=== PATIENT | female | born 1990 | race Caucasian/White ===

== ENCOUNTER 2017-10-03 23:47 | Emergency (ER) | payer BC ==
--- NOTE | 2017-10-03 23:58 | EDM.PDOC ---
ED HPI GENERAL MEDICAL PROBLEM - General Chief Complaint: ENT Problem Stated Complaint: POSS EAR INFECTION Time Seen by Provider: 10/03/17 23:58 Source of Information: Reports: Patient History Limitations: Reports: No Limitations - History of Present Illness INITIAL COMMENTS - FREE TEXT/NARRATIVE: 27-year-old female presents to the ED with acute onset of severe right earache starting about 1800 hrs. last evening. Patient states she felt more stuffed up yesterday and felt she was coming down with a cold. She appreciates that there is some pain on touching the tragus of her ear. As use Q-tips to clean her ears. However she has a history of multiple ear infections requiring multiple myringotomy tube insertions she believes 5 times since childhood. She is therefore very prone to ear infection and sinus infections. She denies any bleeding or discharge from the ear. Pain is constant and is still throbbing with intermittent sharp and stabbing pain. Of note she is approximate 16 weeks . Denies any nausea or vomiting. thus far has been uncomplicated. Onset: Today Onset Date: 10/03/17 Onset Time: 18:00 Duration: Hour(s): Location: Reports: Other (Right ear pain) Quality: Reports: Ache, Pressure, Stabbing, Throbbing Severity: Severe (Rates the pain as 8 out of 10.) Improves with: Reports: None Worsens with: Reports: Other Context: Reports: Other (Mild upper respiratory tract infection). Denies: Activity (Lying down seemed to make it worse.), Exercise, Lifting, Sick Contact , Trauma Associated Symptoms: Reports: No Other Symptoms Treatments MEDICAL COLLECTOR: Reports: Other (see below) Right Ear Pain Score (Numeric/FACES): 6 - Related Data Allergies Allergy/AdvReac Type Severity Reaction Status Date / Time No Known Allergies Allergy Verified 10/03/17 23:55 Home Meds: Home Meds Vit #108/Iron/FA [ One Tablet] 1 tab PO DAILY 10/03/17 [History ] Amoxicillin/Potassium Clav [Augmentin 500-125 Tablet] 1 each PO BID #20 tablet 10/04/17 [Rx] oxyCODONE HCl/Acetaminophen [Percocet 5-325 mg Tablet] 1 - 2 each PO Q4H PRN # 20 tablet 10/04/17 [Rx] Past Medical History [employer] History: Reports: : 3 Para: 2 LMP (Approximate): > 3 Months - Past Surgical History HEENT Surgical History: Reports: Myringotomy w Tube(s) (She estimates at least 5 times since childhood.) Social & Family History - Tobacco Use Smoking Status *Q: Never Smoker Second Hand Smoke Exposure: No - Caffeine Use Caffeine Use: Reports: Coffee - Recreational Drug Use Recreational Drug Use: No - Living Situation & Occupation Living situation: Reports: ED ROS ENT - Review of Systems Review Of Systems: See Below Constitutional: Denies: Fever, Chills, Malaise, Weakness, Fatigue, Decreased Appetite, Weight Loss HEENT: Reports: Ear Pain (See history of present illness), Other. Denies: Ear Discharge Respiratory: Denies: Shortness of Breath, Wheezing, Pleuritic Chest Pain, Cough (Mild nasal congestion at this time) Cardiovascular: Reports: No Symptoms Endocrine: Reports: Fatigue GI/Abdominal: Denies: Abdominal Pain, Anorexia, Black Stool, Bloody Stool, Constipation, Diarrhea, Decreased Appetite, Difficulty Swallowing, Distension : Reports: Frequency. Denies: Incontinence, Irregular Menses, Pain, Urgency, Urinary Retention Musculoskeletal: Reports: No Symptoms Skin: Reports: No Symptoms Neurological: Reports: No Symptoms Psychiatric: Reports: No Symptoms ED EXAM, ENT - Physical Exam Exam: See Below Exam Limited By: No Limitations General Appearance: Alert, WD/WN, Mild Distress (No obvious discomfort.) Eye Exam: Bilateral Eye: Normal Inspection Ears: Normal External Exam, Hearing Grossly Normal, Auricular Tenderness (Mild pain on compression of the tragus on the right side.), TM Bulging (Central TM bulging on the right side with extensive scarring on the inferior posterior aspect of the eardrum from previous myringotomy tubes), TM Erythema, TM Fluid. No: Canal Discharge, Canal Foreign Body, Canal Material, Canal Swelling, TM Blood Nose: Normal Inspection Mouth/Throat: Normal Inspection, Normal Gums, Normal Lips, Normal Teeth Head: Atraumatic, Normocephalic Neck: Normal Inspection, Supple, Non-Tender, Full Range of Motion, Lymphadenopathy (L), Lymphadenopathy (R) (Mild on the left), Other ( mild on the right. posterior and anterior chains are normal. ) Respiratory/Chest: No Respiratory Distress, Lungs Clear, Normal Breath Sounds, No Accessory Muscle Use Cardiovascular: Normal Peripheral Pulses, Regular Rate, Rhythm, No Edema, No Gallop, No Murmur Back: Normal Inspection, Full Range of Motion Extremities: Normal Inspection, Normal Range of Motion, Non-Tender, No Pedal Edema Course - Vital Signs Last Recorded V/S: Last Vital Signs Temp 36.4 C 10/03/17 23:52 Pulse 70 10/03/17 23:52 Resp 17 10/03/17 23:52 BP 116/72 10/03/17 23:52 Pulse Ox 98 10/03/17 23:52 - Orders/Labs/Meds Meds: Medications Discontinued Medications Generic Name Dose Route Start Last Admin Trade Name Kate PRN Reason Stop Dose Admin Amoxicillin/Clavulanate Potassium 1 tab 10/04/17 00:07 10/04/17 00:22 Augmentin 500 Mg\125 Mg PO 10/04/17 00:08 1 tab ONETIME ONE Administration Oxycodone/Acetaminophen 1 tab 10/04/17 00:07 10/04/17 00:22 Percocet 325-5 Mg PO 10/04/17 00:08 1 tab ONETIME ONE Administration - Radiology Interpretation Free Text/Narrative:: 27-year-old female presents the ED with severe right ear pain for about 6 hours. She did feel a burst more stuffed up yesterday. Her history is that of recurrent ear infections requiring myringotomy tubes about 5 times over the years. She therefore is very prone to ear infection. She describes the pain as constant throbbing with occasional sharp stabbing pain. Examination reveals that she has small ears. There is pain on compression of the tragus on the right side but only mildly. Examination reveals no height acute otitis media with bulging in the central aspect of the ear canal place her at high risk of spontaneous rupture. There is extensive scarring of the eardrum inferior posteriorly from previous myringotomy tube insertions. The left tympanic membrane appeared normal at this time other than scar tissue. Treated with Augmentin 500/125 mg tablet twice daily for the next 10 days. Initial tablet provided to the ED. Percocet 5/325 one tablet in the ED and may be repeated in our to half a still having significant pain. Of note she is 16 weeks gestation and thus far has been uncomplicated. Advised of pain medication causing constipation and Augmentin potentially causing diarrhea. She is to follow-up with her personal care physician in 14 days time. Advised of high risk of perforation spontaneously and what to do if this occurs. Departure - Departure Time of Disposition: 00:08 Disposition: Home, Self-Care 01 Condition: Fair Clinical Impression: Otitis media Qualifiers: Otitis media type: suppurative Chronicity: acute Laterality: right Recurrence: recurrent Spontaneous tympanic membrane rupture: without spontaneous rupture Qualified Code(s): H66.004 - Acute suppurative otitis media without spontaneous rupture of ear drum, recurrent, right ear - Discharge Information Prescriptions: Amoxicillin/Potassium Clav [Augmentin 500-125 Tablet] 1 each PO BID #20 tablet oxyCODONE HCl/Acetaminophen [Percocet 5-325 mg Tablet] 1 - 2 each PO Q4H PRN # 20 tablet PRN Reason: pain relief. Instructions: Otitis Media, Adult, [id number] Referrals: PCP,Not In Area [Primary Care Provider] - Forms: ED Department Discharge Additional Instructions: Evaluation in the emergency room tonight in regards to severe right earache that started yesterday. Examination reveals an acute otitis media with evidence of bulging of the central eardrum placing her at high risk of spontaneous rupture of the eardrum. Treatment is pain relief with Percocet 5/3/25 milligram tablets one or 2 every 4-6 hours needed for pain relief. This medication is safe during although it can lower your blood pressure make you prone to feeling dizzy when you stand up etc. Antibiotic is to be Augmentin 500 mg/ 125 mg twice daily for the next 10 days to clear up ear infection. Of note the antibiotic take about 36 hours to start to work well. As we discussed yogurt while taking this medication daily can help prevent diarrhea that is often a side effect of this medicine. Just follow-up with her personal physician in 2 weeks' time for ear review.
[2017-10-04] MEDS ORDERED: Amoxicillin/Clavulanate K 500-125 MG Tab PO ONE (00:07)
[2017-10-04] MEDS ORDERED: Acetaminophen/oxyCODONE 325-5 MG Tab PO ONE (00:07)
== END 2017-10-04 00:25 | disposition home or self-care (01) ==
LOC: JD.ED 23:47
DX: H66.004 Acute suppurative otitis media without spontaneous rupture of ear drum, recurrent, right ear (principal); Z79.899 Other long term (current) drug therapy
CPT/HCPCS: 99283; A9270